=== PATIENT | female | born 1995 | race Caucasian/White ===

== ENCOUNTER → 2023-02-28 | Outpatient (CLI) | payer BC ==
--- NOTE | 2023-02-28 08:53 | Diagnostic Imaging Report ---
PROCEDURE: Pelvic comp/transvaginal sonogram. TECHNIQUE: Complete transabdominal and transvaginal pelvic ultrasound was performed. In addition, limited pelvic Doppler was performed. INDICATION: Pelvic pain and dyspareunia. Uterus measures 6.2 x 5.2 x 2.8 cm. Endometrium is 5 mm in thickness. Uterus is retroverted. No myometrial mass is identified. An IUD appears to be well centered in the endometrial canal. Right ovary measures 3.7 x 2.2 x 1.4 cm and left ovary measures 4.2 x 1.3 x 1.7 cm. The ovaries contain small follicles. There is blood flow to the ovaries. No adnexal mass or free fluid is detected. IMPRESSION: Unremarkable transabdominal and transvaginal pelvic ultrasound with limited pelvic Doppler. Dictated by: Dictated on workstation # [id number]
== END ==
LOC: RAD FS 07:16
PROVIDERS: ATTEND Surgery
DX: R10.2 Pelvic and perineal pain (principal); N94.10 Unspecified dyspareunia
CPT/HCPCS: 76830; 76856